=== PATIENT | female | born 1935 | race Caucasian/White ===

== ENCOUNTER 2024-09-28 07:50 | Emergency (ER) | payer MEDICARE, SELFPAY ==
[2024-09-28 07:55] VITALS: BP 185/86; PULSE 89; RESP 14; TEMP 36.7; O2SAT 99
--- NOTE | 2024-09-28 08:12 | ED_ITS ---
HPI - Back Pain/Injury General Chief Complaint: Back Pain/Injury Stated Complaint: Back Pain Time Seen by Provider: 09/28/24 08:01 History of Present Illness HPI Narrative: Patient is an 89-year-old female who presents ER with low back pain. Left SI region. Pain started last night at 4:00 a.m.. She called her daughter at 6:00 a.m. to take her to the ER. No numbness or tingling. No radiation. Patient has no known trauma. She is ambulatory. Typically when she has this pain if s he takes a tramadol it goes away. She had already had her evenings tramadol so she has tried no other pain medicines. Denies any abdominal pain or urinary symptoms. No fevers or chills or sweats. Patient is scheduled to get an MRI here today due to history of colon cancer in the past. Related Data Allergies Allergy/AdvReac Type Severity Reaction Status Date / Time No Known Allergies Allergy Verified 09/28/24 07:55 Review of Systems Review of Systems: All systems reviewed & are unremarkable except as noted in HPI and below Constitutional: Constitutional: Reports no additional constitutional comp laints Cardiovascular: Cardiovascular: Reports no additional cardiovascular complaints Gastrointestinal: Gastrointestinal: Reports no additional gastrointestinal complaints Genitourinary: Genitourinary: Reports no additional female genitourinary complaints Musculoskeletal: Musculoskeletal: Reports no additional musculoskeletal complaints Neurologic: Reports system reviewed and no additional complaints, except as documented PMFSH Past Medical History Medical History (Updated 09/28/24 @ 08:21 by Linden Kumar MD) Cholelithiasis Hyperlipidemia Hypertension History of colon cancer Exam Narrative: GENERAL: Well-appearing, well-nourished, and in no acute distress. HEAD: Normocephalic, atraumatic. ENT: Mucous membranes moist. CHEST: Clear to auscultation. No respiratory distress. HEART: Regular rate and rhythm. Normal peripheral pulses. ABDOMEN: Soft, nontender, nondistended. Back: No midline tenderness the T/L-spine and no evidence of trauma. Mild left SI discomfort. Ambulatory without issue. EXTREMITIES: Normal range of motion. No edema. SKIN: Warm, dry, no rash. NEURO: Alert and oriented x3. Course Course Emergency Course: No trauma. I do not feel patient needs an x-ray of her back. Will provide her with a dose of her home tramadol so she can comfortable during her MRI. Initially family had concerns that patient may have a gallstone but she has no abdominal pain and the discomfort in her back is down low near the buttock. Vital Signs Vital signs: Vital Signs Temperature 98.1 F 09/28/24 07:55 Pulse Rate 89 09/28/24 07:55 Respiratory Rate 14 09/28/24 07:55 Blood Pressure 185/86 H 09/28/24 07:55 Pulse Oximetry 99 09/28/24 07:55 Temperature 98.1 F 09/28/24 07:55 Pulse Rate 89 09/28/24 07:55 Respiratory Rate 14 09/28/24 07:55 Blood Pressure 185/86 H 09/28/24 07:55 Pulse Oximetry 99 09/28/24 07:55 Discharge Plan Discharge Clinical Impression: Chronic low back pain Patient Disposition: Home Condition: Stable Instructions: Lower Back Exercises (ED) Additional Instructions: Please return to the emergency department if you develop severe pain that is not controlled by pain medications or if you are unable to walk because of pain or weakness. Return to the emergency department immediately if you develop fevers, loss of bowel or bladder control (dribbling of urine or having accidents you wouldn't normally have), inability to urinate, numbness of your genital or anal area, or weakness/numbness of your legs or arms as these could all be signs of a serious medical emergency. Patient Language: Divehi Follow-up/Referrals: PHYSICIAN NOT ON STAFF,NONSTAFF [Primary Care Provider] - 1 Week
[2024-09-28] MEDS: traMADol HCL (*CRX) 50 MG TABLET PO (08:21)
[2024-09-28 08:41] VITALS: BP 150/65; PULSE 79; RESP 16; O2SAT 92
== END 2024-09-28 08:45 | disposition home or self-care (01) ==
PROVIDERS: Emergency Provider Emergency Medicine; PCP Physician Assistant
DX: M54.50 Low back pain, unspecified (principal); G89.29 Other chronic pain; I10 Essential (primary) hypertension; E78.5 Hyperlipidemia, unspecified; Z85.038 Personal history of other malignant neoplasm of large intestine
CPT/HCPCS: 99283; A9270

== ENCOUNTER 2024-09-28 09:28 | Outpatient (CLI) | payer MEDICARE, SELFPAY ==
--- NOTE | ~2024-09-28 | MR_ITS ---
EXAMINATION: MR MRCP wo/w con/w 3D wo ind DATE: 09/28/2024 10:45 INDICATION: Iron deficiency. Biliary ductal dilation. TECHNIQUE: Magnetic resonance imaging (MRI) of the abdomen was performed without and with 15 mL Multi lolis intravenous contrast. Sequences included coronal T2-weighted SS-FSE, coronal T2-weighted FS SS- FSE, coronal T2-weighted FS FIESTA, axial T2-weighted FS FIESTA, axial T2-weighted FIESTA, sagittal T 2-weighted SS-FSE, axial T1-weighted dual-echo FSPGR, axial T2-weighted SS-FSE, axial T1-weighted LAV A, axial T2-weighted STIR FSE. Thick-slab T2-weighted FRFSE-XL images were obtained for magnetic reso nance cholangiopancreatography (MRCP). Rotating maximum intensity projection 3-D reconstructions of t he volumetric data were created by the technologist. Postcontrast sequences included a time course of axial T1-weighted LAVA. COMPARISON: None. FINDINGS: ABDOMEN MRI: Heart size is normal. No pericardial or pleural effusion. Moderate-sized sliding-type hiatal hernia. There is a 2.5 cm irregularly-shaped gallstone in the gallbladder. There is subtle trabeculation of t he mucosal surface to the gallbladder which can be seen with adenomyomatosis or cholecystitis either acute or chronic. 4 mm T2 hyperintense nonenhancing splenic cyst. Pancreas and bilateral adrenal glan ds are normal. There are multiple bilateral nonenhancing renal cysts the majority simple appearing, T 2 hyperintense, the largest on the left measuring 4.9 cm. A few of the cysts demonstrate increased T1 and decreased T2 signal consistent with complex proteinaceous/hemorrhagic cyst. Visualized portions of bowels are unremarkable. No pathologically enlarged abdominal or upper pelvic lymphadenopathy. Mid line anterior abdominal wall surgical scar. Lumbar dextroscoliosis with compensatory thoracolumbar le voscoliosis with moderate to severe lumbar and lower thoracic spondylosis. Bone marrow signal is norm al throughout. ABDOMEN MRCP: Common bile duct is mildly dilated to 8 mm. 4-5 mm round low signal intensity filling defect in the d istal common bile duct especially on the coronal T2-weighted images. No intrahepatic biliary ductal d ilation. IMPRESSION: 1. Cholelithiasis and likely T4-5 millimeters gallstone in the distal aspect of the mildly dilated co mmon bile duct. No intrahepatic biliary ductal dilation. 2. Trabeculated mucosal surface to the nondilated gallbladder which could be due to adenomyomatosis o r cholecystitis,, more likely chronic as there is no significant gallbladder wall thickening or evide nt pericholecystic inflammatory stranding to suggest acute cholecystitis. 3. Moderate sliding-type hiatal hernia. Reviewed, dictated and finalized at location A. IMPRESSION: 1. Cholelithiasis and likely T4-5 millimeters gallstone in the distal aspect of the mildly dilated common bile duct. No intrahepatic biliary ductal dilation. 2. Trabeculated mucosal surface to the nondilated gallbladder which could be du e to adenomyomatosis or cholecystitis,, more likely chronic as there is no sign ificant gallbladder wall thickening or evident pericholecystic inflammatory str anding to suggest acute cholecystitis. 3. Moderate sliding-type hiatal hernia.
== END 2024-09-28 09:29 | disposition home or self-care (01) ==
PROVIDERS: PCP Physician Assistant; Visit Provider Internal Medicine Medical Oncology
DX: K80.20 Calculus of gallbladder without cholecystitis without obstruction (principal); K82.8 Other specified diseases of gallbladder; K44.9 Diaphragmatic hernia without obstruction or gangrene; C18.0 Malignant neoplasm of cecum; E61.1 Iron deficiency; D51.8 Other vitamin B12 deficiency anemias
CPT/HCPCS: 74183; 76376; A9577